=== PATIENT | male | born 1980 | race Caucasian/White ===

== ENCOUNTER 2017-01-30 18:24 | Emergency (ER) | payer BC, OTHER ==
--- NOTE | 2017-01-30 18:55 | ERNOTE ---
Upper Extremity HPI - Narrative Date of Service: 01/30/17 - General Extremities Pain Location: shoulder: left Time Seen by Provider: 01/30/17 18:54 Source: patient, RN notes reviewed Exam Limitations: no limitations - Immun/Allergies/Home Medications Immunizations: IMMUNIZATION HX Immunizations Up to Date Yes Allergies/Adverse Reactions: Allergies Allergy/AdvReac Type Severity Reaction Status Date / Time hydrocodone bitartrate Allergy Verified 02/02/13 19:03 [From Vicodin] Home Medications: HOME MEDICATIONS NK [No Home Medication] 12/07/13 [Last Taken Unknown] - History of Present Illness Narrative: Harmeet is a 36 year old male who presents to the ED by private vehicle for evaluation of left shoulder pain that began yesterday morning. The pain was present when he woke up. It has worsened today and now radiates down his arm. He denies any injury. He works at [employer], and has been doing overhead work recently. He denies any prior problems with his shoulder. He has taken ibuprofen today without much improvement. Occurred: yesterday Method of Injury: Reports: no apparent injury Associated Symptoms: Denies: tingling, weakness, numbness distally Prior Treament: Denies: recently seen, similar symptoms before Review of Systems - Review of Systems Constitutional: Absent: recent illness, fever, malaise EYE: Present: no symptoms reported ENT: Present: no symptoms reported Respiratory: Absent: shortness of breath, cough Cardiology: Absent: chest pain, edema Gastrointestinal/Abdominal: Absent: nausea, abdominal pain Genitourinary: Present: no symptoms reported Musculoskeletal: Present: joint pain. Absent: muscle pain, muscle stiffness, joint swelling Skin: Absent: rash, lesions, lumps, change in color Neurological: Absent: weakness, numbness, tingling Endocrine: Present: no symptoms reported Hematologic/Lymphatic: Present: no symptoms reported Psych: Present: no symptoms reported - Patient's Past Medical History Patient History - Medical: No pertinent hx Patient History - Cardiac/Respiratory: No pertinent hx Patient History - Cancer: No Hx of Cancer Patient History - Surgical Procedures: Orthopedic Patient History - Other: None - Social History Living Situations: spouse Abuse History: No History of abuse Psych History: No pertinent hx Smoking Status: Current every day smoker Have you smoked in the past 12 months: Yes Do you dip or chew tobacco: No Alcohol Use: occasionally Drug Use: none - Immunizations Immunizations Up to Date: Yes Physical Exam - Physical Exam General Appearance: Present: wd/wn, alert, no apparent distress Neck: Present: normal inspection, nontender, supple, full range of motion Respiratory: Present: no respiratory distress, no accessory muscle use Cardiovascular/Chest: Present: normal peripheral pulses Extremity Exam: Present: no edema, decreased range of motion - mildly - left shoulder, other - mild tenderness with palpation of left shoulder anteriorly. Absent: joint redness, joint swelling Neurological Exam: Present: alert, oriented, normal mood/affect, no motor/ sensory deficits Skin Exam: Present: normal color, warm/dry ED Progress - Vital Signs Patient's Vital Signs:: I have reviewed the patient's vital signs. Vital Signs: Vital Signs 01/30/17 18:27 Temperature 36.9 C Pulse Rate 60 Respiratory 16 Rate Blood Pressure 115/69 O2 Sat by Pulse 98 Oximetry - X-Ray X-Ray #1 X-Ray: shoulder - Left Interpretation: Interp. by me X-ray Comments: No acute osseous abnormalities noted - Progress/Reassessment Chief Complaint: Upper Extremity Injury/Problem Plan - Plan Plan: Declined need for pain medication while in dept. Work restrictions given. Follow up in occupational health to be arranged by his employer. Departure Clinical Impression: Shoulder sprain Qualifiers: Encounter type: initial encounter Shoulder sprain type: unspecified sprain Laterality: left Qualified Code(s): S43.402A - Unspecified sprain of left shoulder joint, initial encounter - Departure Disposition: Home Follow Up Needed Condition: Good Instructions: Shoulder Sprain Additional Instructions: Ibuprofen 600 mg every 6 hours with food for pain Can also take Tylenol Ice/heat Follow up in occupational health as scheduled by your employer
[2017-01-30 19:30] VITALS: BP 155/92
== END 2017-01-30 19:30 | disposition home or self-care (01) ==
LOC: ER 18:24
DX: S43.402A Unspecified sprain of left shoulder joint, initial encounter (principal); F17.200 Nicotine dependence, unspecified, uncomplicated

== ENCOUNTER 2017-04-06 06:32 | Emergency (ER) | payer BC ==
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
[2017-04-06] MEDS ORDERED: KETOROLAC TROMETHAMINE 60 MG/2 ML VIAL IM ONE ×2 (08:04→08:06)
[2017-04-06 08:24] VITALS: BP 145/82
== END 2017-04-06 08:26 | disposition home or self-care (01) ==
LOC: ER 06:32
PROC: 2W3LX1Z Immobilization of Right Lower Extremity using Splint (ICD-10-PCS; principal; 2017-04-06)
DX: S83.421A Sprain of lateral collateral ligament of right knee, initial encounter (principal); X58.XXXA Exposure to other specified factors, initial encounter; Y93.89 Activity, other specified; Y92.9 Unspecified place or not applicable; F17.200 Nicotine dependence, unspecified, uncomplicated